=== PATIENT | female | born 1995 | race Caucasian/White ===

== ENCOUNTER 2018-09-29 08:08 | Emergency (ER) | payer SELFPAY ==
[~2018-09-29] VITALS: Ht 165.1 cm; Wt 56.8 kg
[2018-09-29] MEDS ORDERED: SODIUM CHLORIDE 0.9% 1,000 ML IV ONE (09:15)
[2018-09-29] MEDS ORDERED: ONDANSETRON HCL 4 MG/2 ML VIAL IVP ONE (09:15)
[2018-09-29 10:00] VITALS: BP 110/70
[2018-09-29] MEDS ORDERED: KETOROLAC TROMETHAMINE 30 MG/ML VIAL IVP ONE (10:00)
== END 2018-09-29 10:35 | disposition home or self-care (01) ==
LOC: EMS 08:09
DX: S09.90XA Unspecified injury of head, initial encounter (principal); Z87.442 Personal history of urinary calculi; Y04.0XXA Assault by unarmed brawl or fight, initial encounter
CPT/HCPCS: 70450; 96374; 96375; 99284; J1885; J2405; J7030

== ENCOUNTER 2019-09-27 01:26 | Emergency (ER) | payer SELFPAY ==
[~2019-09-27] VITALS: Ht 165.1 cm; Wt 56.8 kg
[2019-09-27 01:34] VITALS: BP 113/67
== END 2019-09-27 01:50 | disposition left against medical advice (07) ==
LOC: EMS 01:27
DX: K08.89 Other specified disorders of teeth and supporting structures (principal); Z53.21 Procedure and treatment not carried out due to patient leaving prior to being seen by health care provider